=== PATIENT | male | born 1945 | race Caucasian/White ===

== ENCOUNTER 2024-10-23 12:01 | Emergency (ER) | payer MEDICARE, OTHER, SELFPAY ==
[2024-10-23] VITALS (16 sets, daily range): BP systolic 127–175; BP diastolic 65–85; PULSE 74–110; RESP 15–40; TEMP 36.7; O2SAT 94–98; BMI 23.7
--- NOTE | 2024-10-23 12:27 | DI.US.S_ITS ---
PROCEDURE: US PERIPH VENOUS LOW EXTREM LT INDICATIONS: Left leg pain and swelling TECHNIQUE: Real-time imaging, as well as color and pulse Doppler interrogation, were performed of the lower extremity deep veins from the inguinal ligament to the popliteal fossa, with documentation of the visualized calf veins. COMPARISON: None. FINDINGS: Occlusive clot within the popliteal vein and within the mid to distal superficial femoral vein. The greater sciatic vein, common femoral vein, and deep femoral vein are patent. IMPRESSION: DVT of the superficial femoral vein and popliteal veins. Dictated by: Azeem Rudd M.D. on 10/23/2024 at 12:37 Approved by: Azeem Rudd M.D. on 10/23/2024 at 12:39
--- NOTE | 2024-10-23 12:28 | DI.CT.S_ITS ---
PROCEDURE: CT ANGIO CHEST ABDOMEN PELVIS INDICATIONS: Dyspnea chest pain back pain/aortic dissection protocol TECHNIQUE: Precontrast 5 mm thick sections acquired from the lung apices to the iliac crests. After the administration of intravenous contrast, 2.5 mm thick sections again acquired from the lung apices to the iliac crests. Maximum intensity projection (MIP) oblique sagittal and coronal reformats were then acquired. For radiation dose reduction, the following was used: automated exposure control. COMPARISON: None. FINDINGS: Image quality: Diagnostic. AORTA: No aortic aneurysm. No acute aortic syndrome. CHEST: Lower Neck: No enlarged lymph nodes. Thyroid: No thyroid nodules which require sonographic evaluation. Axillae: No enlarged lymph nodes. Chest Wall: Unremarkable. Lungs and Pleura: No pneumothorax or pleural effusions. Large saddle pulmonary embolus. Dilation of the right ventricle suggesting right heart strain Heart: Increased right to left ventricular ratio. Moderate vascular calcifications Thoracic Vessels: Pulmonary arteries demonstrate normal size. Saddle pulmonary emboli Mediastinum and Zita: No enlarged lymph nodes. Esophagus: No wall thickening. Small hiatal hernia. ABDOMEN: Liver: No solid mass. Gallbladder: No radiopaque gallstones or wall thickening. Biliary ducts: No biliary dilation. Pancreas: No ductal dilation. Spleen: Size is within normal limits. Adrenal Glands: No adrenal nodules. Kidneys and Ureters: No hydronephrosis. No solid mass. No complex renal cystic lesion which requires follow up. Stomach and Bowel: Normal colonic caliber, without significant wall thickening. Normal appendix Peritoneum: No abnormal intraperitoneal fluid. No free air. Ventral Wall: No hernia. Abdominal Nodes: No retroperitoneal or mesenteric adenopathy by size criteria. Vessels: Inferior vena cava is normal in size. PELVIS: Pelvic Organs: Unremarkable. Bladder: Irregular appearance of the bladder with multiple diverticula and anterior wall thickening.. Pelvic Nodes: No enlarged lymph nodes. Miscellaneous: Left fat containing inguinal hernia. Bones: Unremarkable. Mild degenerative changes lumbar spine with vacuum disc phenomenon suggesting chronic spondylosis. Inferior and superior Schmorl nodes within L2. IMPRESSION: Large saddle pulmonary emboli with evidence of right heart strain. Dr. Rudd called and discussed the above findings with the ordering provider at 12:05 p.m. [place] time Dictated by: Azeem Rudd M.D. on 10/23/2024 at 12:02 Approved by: Azeem Rudd M.D. on 10/23/2024 at 12:12
--- NOTE | 2024-10-23 12:30 | EKG_ITS ---
[address] [address] Test Date: 2024-10-23 Pat Name: Beni Irving Department: Room: Gender: Male [employer]: : [id number] Requested By: Order Number: [id number] Reading MD: Antelmo Tan MD Measurements Intervals [place] Rate: 97 P: 57 ID: [id number] QRS: -69 QRSD: 92 T: 65 QT: 356 QTc: 452 Interpretive Statements Normal sinus rhythm Left anterior fascicular block Electronically Signed On 10-24-2024 8:25:20 PDT by Antelmo Tan MD
--- NOTE | 2024-10-23 12:30 | ED.SOB ---
HPI - SOB/Dyspnea General Chief Complaint: Shortness of Breath/Dyspnea Stated Complaint: LT leg swelling; poss blood clot Time Seen by Provider: 10/23/24 12:18 Source: patient Mode of arrival: Ambulatory Limitations: no limitations History of Present Illness HPI Narrative: Patient here with . Complains of bilateral leg numbness with lower back pain. Also complains of left leg swelling and discoloration. Shoes socks pants removed. Patient in gown. Patient complains of shortness of breath that occurred while walking his dog 4 days ago and has been short of breath since then. Back pain started yesterday. No known injury or stressors on his back. Patient does have history of hypercholesteremia and stopped taking his cholesterol medication in the past month. He did not like the way it made him feel. No prior history of heart attack strokes diabetes blood clots in legs or lungs aortic aneurysm or dissection. Denies any recent long travel or immobilization or illness. No prior history of lower back surgery or MRI or physical therapy. No known injury to his lower back. Review of Systems Review of Systems Narrative: GENERAL: Negative chills, fatigue, malaise, fever, sweats. HEENT: Negative sinus pain, ear pain, sore throat RESPIRATORY: Positive dyspnea, negative cough CARDIOVASCULAR: Negative chest pain, palpitations GASTROINTESTINAL: Negative vomiting, nausea, abdominal pain : Negative dysuria, frequency, hematuria MUSCULOSKELETAL: Positive back, muscle or bony pain SKIN: Negative rash, skin lesions, positive color change NEUROLOGIC: Negative weakness, numbness ROS Unobtainable: All systems reviewed & are unremarkable except as noted in HPI and below Patient History Social History Smoking Status: Never smoker Smoking Status: Never smoker Exam Narrative Exam Narrative: GENERAL: in no distress, not toxic not dyspneic, patient is smiling. Joking laughing with staff and . Patient in no distress. HEAD: Normocephalic. EYES: Pupils equal round ENT: Mucous membranes moist. NECK: Trachea midline. CARDIOVASCULAR: Regular rate and rhythm, no murmur no muffled heart sounds no friction rub RESPIRATORY: Clear to auscultation. Breath sounds equal bilaterally. No wheezes, rales, or rhonchi. Speaking full sentences. No respiratory distress. GASTROINTESTINAL: Abdomen soft, non-tender, strong bilateral femoral pulses EXTREMITIES: No gross deformities. Shoes socks legs pants removed. Left leg grossly symmetric to the right leg. There is edema to the lateral malleolus of the left ankle. Slight bluish discoloration cyanosis of the lateral ankle area. Calf is soft nontender no palpable cords. Negative Kitchen test negative Homans test. No signs of compartment syndrome. Foot is otherwise warm and soft, strong pedal pulse on the left. Brisk cap refills light touch intact to foot and toes. BACK: No flank tenderness. Nontender bilateral paralumbar muscles. No midline tenderness or step-off the lumbar spine. No pain with bilateral straight leg raises. NEURO: AOx4. Clear speech SKIN: Warm and dry PSYCH: Not anxious, is cooperative Initial Vital Signs Initial Vital Signs: Vital Signs Pulse Rate 110 H 10/23/24 12:07 Blood Pressure 175/81 H 10/23/24 12:07 Pulse Oximetry 95 10/23/24 12:07 Course Orders Ordered: Discontinued Medications Heparin Sodium (Porcine) (Heparin 5,000 Unit/Ml Vial) 6,500 unit 80 unit/kg (6500 unit) IV NOW ONE Stop: 10/23/24 13:08 Last Admin: 10/23/24 13:15 Dose: 6,500 unit Documented By: Heparin Sodium/Dextrose (Heparin Drip) 25,000 unit in 500 mls @ 30.209 mls/hr IV CONT IVET; Protocol Last Admin: 10/23/24 13:15 Dose: 18 units/kg/hr, 30.209 mls/hr Documented By: Co-signed By: BOUBACAR Vital Signs Vital signs: Vital Signs - 8 hr 10/23/24 12:07 10/23/24 12:07 10/23/24 12:11 Temperature 98.0 F Pulse Rate 110 H 110 H Respiratory Rate 18 Blood Pressure 175/81 H 175/81 H Pulse Oximetry 95 96 Oxygen Delivery Method Room Air 10/23/24 12:27 10/23/24 12:27 10/23/24 12:30 Temperature Pulse Rate 101 H Respiratory Rate 38 H Blood Pressure 154/81 H 165/85 H Pulse Oximetry 97 Oxygen Delivery Method 10/23/24 12:30 10/23/24 12:48 10/23/24 12:48 Temperature Pulse Rate 101 H 96 H Respiratory Rate 38 H 18 Blood Pressure 144/75 H Pulse Oximetry 98 Oxygen Delivery Method 10/23/24 13:00 10/23/24 13:01 10/23/24 13:01 Temperature Pulse Rate 91 H 92 H Respiratory Rate 26 H 29 H Blood Pressure 138/65 Pulse Oximetry 96 98 Oxygen Delivery Method Room Air 10/23/24 13:30 10/23/24 13:32 10/23/24 13:32 Temperature Pulse Rate 96 H 92 H Respiratory Rate 20 40 H Blood Pressure 156/79 H Pulse Oximetry 94 95 Oxygen Delivery Method 10/23/24 14:00 10/23/24 14:30 10/23/24 14:30 Temperature Pulse Rate 94 H 81 81 Respiratory Rate 37 H 19 19 Blood Pressure Pulse Oximetry 96 96 96 Oxygen Delivery Method Room Air 10/23/24 14:30 Temperature Pulse Rate Respiratory Rate Blood Pressure 131/73 Pulse Oximetry Oxygen Delivery Method MDM - SOB/Dyspnea Lab Data 10/23/24 12:29 10/23/24 12:29 Labs: Lab Results 10/23/24 Range/Units 12:29 WBC 8.6 (4.5-11.0) X10^3/uL RBC 4.31 L (4.5-5.9) X10^6/uL Hgb 13.2 L (13.5-17.5) g/dL Hct 38.9 L (41-53) % MCV 90.3 (80-100) fL MCH 30.6 (26-34) PG MCHC 33.9 (30-36) % RDW 14.2 (11.6-14.8) % Plt Count 165 (150-400) X10^3/uL Neut % (Auto) 75.5 H (50-75) % Lymph % (Auto) 16.3 L (25-40) % [place] % (Auto) 7.0 (3-14) % Eos % (Auto) 0.5 L (2-4) % Baso % (Auto) 0.7 (0-2) % Neut # (Auto) 6500 (3581-5622) /uL Lymph # (Auto) 1400 (1040-8107) /uL [place] # (Auto) 600 (0-900) /uL Eos # (Auto) 0 (0-450) /uL Baso # (Auto) 100 (0-100) /uL PT 12.6 H (9.4-12.5) SECONDS INR 1.1 (0.9-1.3) APTT 30 (25.1-36.5) SECONDS Sodium 137 (137-145) mmol/L Potassium 4.6 (3.4-5.1) mmol/L Chloride 103 (98-107) mmol/L Carbon Dioxide 23 (22-32) mmol/L BUN 21 H (9-20) mg/dL Creatinine 1.01 (0.66-1.25) mg/dL Estimated GFR > 60 (>60) mL/min BUN/Creatinine Ratio 20.8 (6-22) Glucose 117 H (80-110) mg/dL Calcium 9.6 (8.4-10.2) mg/dL Total Bilirubin 0.8 (0.2-1.3) mg/dL AST 30 (17-59) IU/L ALT 62 H (<50) IU/L Alkaline Phosphatase 87 (38-126) U/L Total Creatine Kinase 82 (55-170) U/L Troponin I < 0.012 (0.01-0.034) ng/mL Total Protein 7.4 (6.3-8.2) g/dL Albumin 4.5 (3.5-5.0) g/dL Globulin 2.9 (1.7-4.1) g/dL Albumin/Globulin Ratio 1.6 (1.0-2.8) [facility] Narrative Medical decision making narrative: Patient here with . Complains of bilateral leg numbness with lower back pain. Also complains of left leg swelling and discoloration. Shoes socks pants removed. Patient in gown. Patient complains of shortness of breath that occurred while walking his dog 4 days ago and has been short of breath since then. Back pain started yesterday. No known injury or stressors on his back. Patient does have history of hypercholesteremia and stopped taking his cholesterol medication in the past month. He did not like the way it made him feel. No prior history of heart attack strokes diabetes blood clots in legs or lungs aortic aneurysm or dissection. Denies any recent long travel or immobilization or illness. No prior history of lower back surgery or MRI or physical therapy. No known injury to his lower back. After history and exam, ultrasound left leg CT angiogram chest abdomen pelvis CBC CMP EKG troponin monitoring analyst [facility] Medical records reviewed: No recent visit for this complaint Differential considered: Includes but not limited to DVT SVT CHF pulmonary embolism aortic dissection Lab Test results independently reviewed as above. Pertinent findings: WBC 8.6 hemoglobin 13.2 BUN 21 creatinine 1.01 troponin less than 0.012 INR 1.1 Independently reviewed EKG sinus rhythm rate [address] elevation or depression Imaging studies independently reviewed: CT chest positive for saddle embolus, ultrasound left leg positive for DVT Consultations: 2:[address] Campbell, Interventional Radiology with [facility], she will be happy to follow along and consult but no urgent intervention indicated at this time. Admit to hospitalist. 3:19 p.m.. Spoke with Jeaneth harrison hospitalist, Ryan, will accept patient. Re-evaluations: 1:16 p.m. for updated patient results. He does have a blood clot in the lungs as well as the leg. You will need to be transferred because it is a central saddle embolus and will need specialty care including but not limited to Interventional Radiology or Cardiology for possible EKOS. Heparin has been started. Discussion: Appropriate for transfer higher level of care. Heparin has been started. Diagnosis: Saddle embolus/DVT Discharge Plan Departure Patient Disposition: [facility] Clinical Impression: Acute cor pulmonale due to saddle embolus of pulmonary artery Acute deep vein thrombosis (DVT) Qualifiers: DVT location: lower extremity Affected thrombotic vein of extremity: unspecified vein of extremity Laterality: left Qualified Code(s): I82.402 - Acute embolism and thrombosis of unspecified deep veins of left lower extremity
[2024-10-23 12:46] LABS: Add Manual Diff / Slide Review NO; Basophils Absolute Auto 100 /uL (0-100); Basophils Percent Auto 0.7 % (0-2); Eosinophils Absolute Auto 0 /uL (0-450); Eosinophils Percent Auto 0.5 % (2-4); Hematocrit 38.9 % (41-53); Hemoglobin 13.2 g/dL (13.5-17.5); Lymphocytes Absolute Auto 1400 /uL (1100-4500); Lymphocytes Percent Auto 16.3 % (25-40); Mean Corpuscular HGB Conc 33.9 % (30-36); Mean Corpuscular Hemoglobin 30.6 PG (26-34); Mean Corpuscular Volume 90.3 fL (80-100); Monocytes Absolute Auto 600 /uL (0-900); Neutrophils Absolute Auto 6500 /uL (1500-7000); Neutrophils Percent Auto 75.5 % (50-75); Platelet Count 165 X10^3/uL (150-400); Red Blood Cell Count 4.31 X10^6/uL (4.5-5.9); Red Cell Distribution Width 14.2 % (11.6-14.8); White Blood Cell Count 8.6 X10^3/uL (4.5-11.0)
[2024-10-23 12:55] LABS: INR 1.1 (0.9-1.3); Prothrombin Time 12.6 SECONDS (9.4-12.5)
[2024-10-23 12:58] LABS: PTT Partial Thromboplastin Tim 30 SECONDS (25.1-36.5)
[2024-10-23 13:00] LABS: Alanine Aminotransferase 62 IU/L (<50); Albumin 4.5 g/dL (3.5-5.0); Albumin Globulin Ratio 1.6 (1.0-2.8); Alkaline Phosphatase 87 U/L (38-126); Aspartate Aminotransferase 30 IU/L (17-59); BUN Creatinine Ratio 20.8 (6-22); Bilirubin Total 0.8 mg/dL (0.2-1.3); Blood Urea Nitrogen 21 mg/dL (9-20); Calcium 9.6 mg/dL (8.4-10.2); Carbon Dioxide 23 mmol/L (22-32); Chloride 103 mmol/L (98-107); Creatine Kinase 82 U/L (55-170); Estimated Glomerular Filt Rate > 60 mL/min (>60); Globulin 2.9 g/dL (1.7-4.1); Glucose 117 mg/dL (80-110); HEMOLYSIS < 15 (0-50); Potassium 4.6 mmol/L (3.4-5.1); Sodium 137 mmol/L (137-145); Total Protein 7.4 g/dL (6.3-8.2)
[2024-10-23 13:11] LABS: Troponin I < 0.012 ng/mL (0.01-0.034)
[2024-10-23] MEDS: HEPARIN 5,000 UNIT/ML VIAL 6500 UNIT IV (13:15)
[2024-10-23] MEDS: HEPARIN DRIP 25,000 UNIT/500 ML IV.SOLN 30.209 UNIT IV (13:15)
--- NOTE | 2024-10-23 13:46 | PC.NURSE ---
Addendum entered by Nick Almanzar CNA 10/23/24 17:32: Mynor with [facility] calls at 1553 with bed and report information. [facility] ALS transport arrived to [place] ED at 1730. Addendum entered by Nick Almanzar CNA 10/23/24 15:32: Mynor with [facility] calls back at 1411 with IR provider to speak with Dr. Templeton. Mynor with [facility] calls back at 1510 with hospitalist to speak with Dr. Templeton. [facility] hospitalist accepts pt. Awaiting bed and room assignment. Original Note: Bed search and transfer Dr. Templeton instructs start search with [facility] and radhika Called [facility] [place] @1317 spoke with Mynor from transfer center. Face sheet faxed and images pushed. Dr. Templeton spoke with Mynor. Awaiting call back. Called Radhika Bernabe / Michelle @1334 spoke with transfer center [facility]. Face sheet faxed and images pushed. Josefa says she will call back with provider. Dr. Templeton updated on bed search.
--- NOTE | 2024-10-28 15:29 | PC.NURSE ---
late entry- per RN patient was transported to another facility with heparin drip infusing.
== END 2024-10-23 18:22 | disposition short-term general hospital (02) ==
PROVIDERS: Emergency Provider Emergency Medicine
DX: I82.402 Acute embolism and thrombosis of unspecified deep veins of left lower extremity (principal); I26.02 Saddle embolus of pulmonary artery with acute cor pulmonale; R06.02 Shortness of breath; R20.0 Anesthesia of skin
CPT/HCPCS: 36415; 71275; 74174; 80053; 82550; 84484; 85025; 85610; 85730; 93005; 93010; 93971; 96365; 96366; 96375; 99284; 99285; J1644; Q9967

== ENCOUNTER → 2025-01-13 07:58 | Outpatient (CLI) | payer MEDICARE, OTHER, SELFPAY ==
--- NOTE | 2025-01-13 08:00 | DI.US.S_ITS ---
PROCEDURE: US PERIPH VENOUS LOW EXTREM LT INDICATIONS: RE-EVALUATE KNOWN DVT TECHNIQUE: Real-time imaging, as well as color and pulse Doppler interrogation, were performed of the lower extremity deep veins from the inguinal ligament to the popliteal fossa, with documentation of the visualized calf veins. COMPARISON: [facility], , PERIP VENOUS LOW EXTREM LT, 10/23/2024, 13:06. FINDINGS: Findings are similar to the prior exam with minimal decrease in the occlusive thrombus of the distal left femoral vein into the left popliteal vein. Previously thrombus was in the mid and distal left femoral vein and popliteal vein. IMPRESSION: Persistent deep vein thrombosis left femoral and popliteal veins. Continued follow-up is needed Dictated by: Marshall Kraus M.D. on 01/13/2025 at 10:59 Approved by: Marshall Kraus M.D. on 01/13/2025 at 11:02
== END ==
LOC: US 07:59
PROVIDERS: PCP Family Medicine; Referring Provider Family Medicine; Visit Provider Family Medicine
DX: I82.432 Acute embolism and thrombosis of left popliteal vein (principal); I82.412 Acute embolism and thrombosis of left femoral vein; I26.02 Saddle embolus of pulmonary artery with acute cor pulmonale
CPT/HCPCS: 93971

== ENCOUNTER → 2025-04-07 06:16 | Outpatient (CLI) | payer MEDICARE, OTHER, SELFPAY ==
--- NOTE | 2025-04-07 06:18 | DI.CT.S_ITS ---
PROCEDURE: CT ANGIO CHEST INDICATIONS: f/u TECHNIQUE: After the administration of intravenous contrast, 2 mm thick sections acquired from the pulmonary apices to the posterior costophrenic angles. 3-dimensional maximum intensity projection (MIP) coronal and sagittal reformats were then acquired through the thorax. For radiation dose reduction, the following was used: automated exposure control, adjustment of mA and/or kV according to patient size. COMPARISON: [facility], CT, CT ANGIO CHEST ABDOMEN PELVIS, 10/23/2024, 12:37. FINDINGS: Image quality: Diagnostic. Pulmonary arteries: Pulmonary arteries are normal in size, and demonstrate no intraluminal filling defects to suggest central pulmonary embolism. Lower Neck: No enlarged lymph nodes. Thyroid: No thyroid nodules which require sonographic follow up, per consensus guidelines. Axillae: No enlarged lymph nodes. Chest Wall: Unremarkable. Bones: Unremarkable. Lungs and Pleura: No pneumothorax or pleural effusions. No consolidation. Solid pulmonary micronodule in the right lower lobe which does not require follow-up according to consensus guidelines. Heart: Heart size is normal. No pericardial effusion. Thoracic Vessels: No aortic aneurysm. Mediastinum and Zita: No enlarged lymph nodes. Esophagus: No wall thickening. No hiatal hernia. Upper Abdomen: Visualized upper abdomen solid organs and bowel loops appear normal. IMPRESSION: No pulmonary embolus. No acute cardiopulmonary process. Dictated by: Pardeep Mejia M.D. on 04/07/2025 at 8:59 Approved by: Pardeep Mejia M.D. on 04/07/2025 at 9:10
== END ==
LOC: CT 06:18
PROVIDERS: PCP Family Medicine; Referring Provider Family Medicine; Visit Provider Family Medicine
DX: I26.02 Saddle embolus of pulmonary artery with acute cor pulmonale (principal)
CPT/HCPCS: 71275; Q9967